=== PATIENT | female | born 1950 | race Caucasian/White ===

== ENCOUNTER 2017-09-23 06:34 | Emergency (ER) | payer BC ==
[2017-09-23] MEDS: IBUPROFEN 600 MG TAB PO (07:12)
[2017-09-23] MEDS: NEOMYC/POLYMYX/BACIT 30 GM OINT TOP (07:13)
== END 2017-09-23 10:46 | disposition home or self-care (01) ==
LOC: E/R 10:46
DX: S05.12XA Contusion of eyeball and orbital tissues, left eye, initial encounter (principal); I10 Essential (primary) hypertension; W01.0XXA Fall on same level from slipping, tripping and stumbling without subsequent striking against object, initial encounter; Y92.9 Unspecified place or not applicable
CPT/HCPCS: 70450; 99284-25